=== PATIENT | female | born 1985 | race Two or more races ===

== ENCOUNTER 2023-07-02 10:42 | Emergency (ER) | payer OTHER ==
[~2023-07-02] VITALS: Ht 152.4 cm; Wt 54.0 kg
[2023-07-02] MEDS ORDERED: SINGULAIR10 MG PO (13:14)
== END 2023-07-02 14:47 | disposition home or self-care (01) ==
LOC: ER 10:43
DX: B37.31 Acute candidiasis of vulva and vagina (principal); Z88.8 Allergy status to other drugs, medicaments and biological substances